=== PATIENT | female | born 1995 | race Caucasian/White ===

== ENCOUNTER 2016-08-10 13:52 | Inpatient (IN) | payer OTHER ==
--- NOTE | ~2016-08-10 | HP ---
Unit #: [id number] #: [id number] Patient: BUBBA DIEGO [id number] [place] [address] [id number] MR#: [id number] NAME: BUBBA DIEGO ROOM: [facility] Age: 21 Sex: F Admission Date: 08/10/2016 : 1995 Attending Physician: Surinder Suazo M.D. Admitting Physician: Surinder Suazo M.D. Primary Care Physician: Generic Doctor Not In System HISTORY AND PHYSICAL HISTORY OF PRESENT ILLNESS The patient is a 21-year-old female admitted to [facility] on 08/10/2016 to withdrawal from heroin and for suicidal ideations. PAST MEDICAL HISTORY 1. Drug abuse. 2. Asthma. PAST SURGICAL HISTORY Cholecystectomy SOCIAL HISTORY The patient works at [employer]. She lives with her boyfriend's mom. She smokes E-cigarettes and uses 1/2 gram of heroin every one to two days. FAMILY MEDICAL HISTORY Noncontributory. ALLERGIES No known drug allergies. CURRENT MEDICATIONS 1. Alprazolam 2. Tri-Sprintec. 3. Neurontin 4. Celexa 5. Advair REVIEW OF SYSTEMS CONSTITUTIONAL: No fever or chills. HEENT: Denies any sore throat, ear pain or runny nose. CARDIOVASCULAR: Denies chest pain, irregular heart rhythm or palpitations. CHEST: Denies shortness of breath or cough. No hemoptysis. GASTROINTESTINAL: Denies nausea, vomiting, diarrhea or chronic constipation. ENDOCRINE: Denies history of increased thirst or urination. No recent significant weight loss or gain. GENITOURINARY: Denies dysuria, frequency, or hematuria. SKIN: Denies any rashes. HEMATOLOGIC: Denies history of increased bleeding or bruising. MUSCULOSKELETAL: Denies any hot, swollen joints. No generalized muscle pain. NEUROLOGIC: Denies problems with vision or speech. No frequent, severe Unit #: [id number] #: [id number] Patient: BUBBA DIEGO headaches. No numbness, tingling or weakness in any extremities. Denies loss of bladder or bowel control. PHYSICAL EXAM GENERAL: She is awake, alert and oriented in no acute distress. VITAL SIGNS: Temperature 98.2, heart rate 84, respiration 18, blood pressure 160/100. HEIGHT: 5'3". WEIGHT: 128 pounds. SKIN: Warm and dry without rash or lesion. HEENT: Normocephalic. TMs not viewed. Oral and nasal passages clear. Conjunctivae clear. PERRLA. EOMs intact. NECK: Supple without lymphadenopathy or thyromegaly. HEART: Regular rate and rhythm without murmur. LUNGS: Clear. ABDOMEN: Soft, nontender. : Not done. EXTREMITIES: No evidence of cyanosis, clubbing or edema. Moves all without focal deficit. NEUROLOGICAL: Grossly within normal limits. Cranial Nerves: II: Visual cedeno are intact. III, IV AND : Extraocular movements are intact. Pupils are equal, round and reactive to light. V: Facial sensation is grossly normal. VII: Facial movements and expression are normal. VIII: Auditory acuity grossly intact. IX, X: Uvula is midline. Phonation is normal. XI: Patient shrugs shoulders and turns head normally. XII: Tongue protrudes in the midline. Sensory and Motor Function: Sensory and motor sensation is grossly normal. Motor: moves all extremities well. IMPRESSION 1. Psychiatric admission. 2. Drug abuse. 3. Asthma. RECOMMENDATIONS Psychiatric per psychiatrist. MEDICAL: No contraindication to participate in facility activities. MEDICAL PROGNOSIS Good. MEDICAL CONDITION Stable. Dictated by... Yun Humphreys/mirna TD: 08/12/2016 03:18 Unit #: [id number] #: [id number] Patient: BUBBA DIEGO JOB #: [id number] HISTORY AND PHYSICAL X JULI SIDDIQUI APRN X HISTORY AND PHYSICAL
--- NOTE | ~2016-08-10 | PN ---
Unit #: [id number] #: [id number] Patient: BUBBA PAULINO [id number] [facility] [address] [place] [address] [id number] I MR#: [id number] NAME: BUBBA PAULINO ROOM: [facility] Age: 21 Sex: F Admission Date: 08/10/2016 : 1995 Attending Physician: Surinder Suazo M.D. Admitting Physician: Surinder Suazo M.D. Primary Care Physician: Generic Doctor Not In System [facility] PROGRESS NOTES DATE OF SERVICE: 08/12/2016 SUBJECTIVE Ms. Bubba Paulnio is a 21-year-old white female, seen on 08/12/2016. The patient was pleasant and cooperative during interview, but still sad, dysphoric, anxious. The patient denied any withdrawal symptoms. Reports that she is sleeping good, tolerating medication fairly well. The patient denied any suicidal ideation. REVIEW OF SYSTEMS Complete review of systems unremarkable. MENTAL STATUS EXAMINATION General appearance, the patient dressed casually. Attention span and concentration, fair. Oriented in place and person. Mood and affect were sad and dysphoric. Speech, regular rate. Thought process, goal directed. Association, the patient denied any thoughts of harming self or others or any psychotic symptom but withdrawn, isolative and seclusive. Recent and remote memory, fair. Insight and judgment, fair to poor. DIAGNOSIS Mood disorder, not otherwise specified. ASSESSMENT AND PLAN Advised to continue with current medication and therapeutic protocol. We will monitor response to medication and make further adjustment of medication. Dictated by... Josh Munoz/sultana TD: 08/13/2016 07:24 JOB #: [id number] Unit #: [id number] #: [id number] Patient: BUBBA PAULINO [facility] PROGRESS NOTES X Surinder Suazo MD PROGRESS NOTE
--- NOTE | ~2016-08-10 | PN ---
Unit #: [id number] #: [id number] Patient: BUBBA PAULINO [id number] [facility] [address] [place] [address] [id number] MR#: [id number] NAME: BUBBA PAULINO ROOM: [facility] Age: 21 Sex: F Admission Date: 08/10/2016 : 1995 Attending Physician: Surinder Suazo M.D. Admitting Physician: Surinder Suazo M.D. Primary Care Physician: Generic Doctor Not In System [facility] PROGRESS NOTES DATE 08/11/2016 DISCUSSION Ms. Bubba Paulino is a 21-year-old female seen on 08/11/2016. The patient continues to be sad, depressed, flat affect, withdrawn, isolative but maintained safe behavior, no aggressive behavior. Or self-harming behavior. Tolerating medication fairly well. Complete review of systems unremarkable. MENTAL STATUS EXAMINATION General appearance, the patient dressed casually. Attention span and concentration fair. Oriented to place and person. Mood and affect sad, dysphoric, withdrawn. Speech regular rate. Thought process goal directed. The patient denied any thoughts of harming self or others but still sad depressed, withdrawn, isolative. Recent and remote memory fair. Insight and judgement fair to poor. DIAGNOSES 1. Mood disorder NOS. 2. Opioid use disorder severe. ASSESSMENT/PLAN Advise to continue with current medication and therapeutic protocol. We will monitor response to medication and make further adjustment of medication. Dictated by... Josh Munoz/mirna TD: 08/13/2016 22:12 JOB #: [id number] Unit #: [id number] #: [id number] Patient: BUBBA PAULINO PROGRESS NOTES X Surinder Suazo MD PROGRESS NOTE
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
--- NOTE | ~2016-08-10 | DS ---
Unit #: [id number] #: [id number] Patient: BUBBA DIEGO [id number] [facility] [address] [place] [address] [id number] I MR#: [id number] NAME: BUBBA DIEGO ROOM: [facility] Age: 21 Sex: F Admission Date: 08/10/2016 : 1995 Discharge Date: 08/13/2016 Attending Physician: Surinder Suazo M.D. Primary Care Physician: Generic Doctor Not In System DISCHARGE SUMMARY REASON FOR ADMISSION Suicidal ideation. DIAGNOSTIC STUDIES LABORATORY RESULTS: Unremarkable except for urine drug screen positive for benzodiazepine. HOSPITAL COURSE The patient was admitted to inpatient unit and treated with group therapy, individual therapy, medication management, and chemical dependency group. The patient responded well with the above modalities of treatment. Subsequently, the patient was discharged with a plan to follow up in outpatient program. DISCHARGE MEDICATIONS Celexa 20 mg daily for mood symptom. DISCHARGE DIAGNOSES Psychiatric: 1. Mood disorder, not otherwise specified. 2. Opioid use disorder, severe. Secondary diagnosis: Deferred. Medical diagnosis: Asthma. Stressors: Psychosocial stressors. DISCHARGE INSTRUCTIONS The patient is to follow up in outpatient clinic as per high school social science teacher. CONDITION ON DISCHARGE The patient was pleasant and cooperative. Denied any psychotic symptom or any suicidal ideation. PROGNOSIS Guarded. DIET AND ACTIVITY As tolerated. Dictated by... Surinder Suazo M.D. Unit #: [id number] #: [id number] Patient: BUBBA DIEGO SZC/modl TD: 08/13/2016 19:05 JOB #: [id number] DISCHARGE SUMMARY X Surinder Suazo MD X DISCHARGE SUMMARY
[2016-08-11 12:30] LABS: BASOPHIL% 0.2 % (0-2.5); EOSINOPHIL# 0.6 X10e3 (0-0.7); EOSINOPHIL% 9.2 % (0.0-7.0); HEMATOCRIT 39.5 % (35.0-45.0); HEMOGLOBIN 13.1 gm/dL (12.0-16.0); LYMPHOCYTE# 2.8 X10e3 (1.0-3.5); LYMPHOCYTE% 44.7 % (17.0-45.0); MEAN CELL VOLUME 88.6 FL (83-96); MEAN CORPUSCULAR HEMOGLOBIN 29.4 PG (28-34); MEAN CORPUSCULAR HGB CONC 33.2 g/dL (30-36); MEAN PLATELET VOLUME 9.6 FL (6.5-11.5); MONOCYTE# 0.5 X10e3 (0-1.0); MONOCYTE% 8.2 % (3.0-12.0); NEUTROPHIL# 2.4 X10e3 (1.5-7.1); NEUTROPHIL% 37.7 % (40-75); PLATELET COUNT 197 X10e3 (140-420); RED BLOOD COUNT 4.46 X10e (3.90-5.30); RED CELL DISTRIBUTION WIDTH 12.6 % (11.0-15.5); WHITE BLOOD COUNT 6.3 X10e3 (4.0-10.5)
[2016-08-11 12:33] LABS: DIFF IND NO
[2016-08-11 13:06] LABS: ALBUMIN SERUM 3.7 g/dL (3.5-5.0); ALKALINE PHOSPHATASE 50 U/L (32-92); ALT (SGPT) 27 U/L (10-40); AST (SGOT) 28 U/L (10-42); BILIRUBIN,TOTAL 0.5 mg/dL (0.2-2.0); BLOOD UREA NITROGEN 10 mg/dL (9-23); BUN/CREATININE RATIO 16.66; CALCIUM SERUM 8.8 mg/dL (8.4-10.2); CARBON DIOXIDE 29 mmol/L (22-31); CHLORIDE 101 mmol/L (100-111); CREATININE SERUM 0.6 mg/dL (0.6-1.4); GLOM FILT RATE Estimated ABOVE60 mL/min (>60); GLUCOSE FASTING 81 mg/dL (70-110); POTASSIUM 4.2 mmol/L (3.5-5.1); PROTEIN TOTAL SERUM 6.7 g/dL (6.0-8.3); SODIUM 136 mmol/L (135-145)
[2016-08-11 13:09] LABS: THYROID STIMULATING HORMONE 0.89 uIU/ml (0.34-5.60)
[2016-08-11 13:16] LABS: FREE THYROXIN (T4) 0.71 ng/dL (0.58-1.64)
[2016-08-12 16:42] LABS: URINE APPEARANCE CLEAR; URINE BILIRUBIN NEG (NEG); URINE BLOOD NEG (NEG); URINE COLOR YELLOW; URINE GLUCOSE NEG (NEG); URINE KETONE NEG (NEG); URINE LEUKOCYTE ESTERASE 1+ (NEG); URINE NITRATE NEG (NEG); URINE PH 7.5 (5-8); URINE PROTEIN NEG (NEG); URINE SPECIFIC GRAVITY 1.017 (1.003-1.035); URINE UROBILINOGEN 0.2 MG/DL (NEG)
[2016-08-12 16:43] LABS: AMPHETAMINE NEG (NEG); BARBITURATES NEG (NEG); BENZODIAZEPINES POS (NEG); COCAINE NEG (NEG); MARIJUANA NEG (NEG); OPIATES NEG (NEG); TRICYCLIC ANTIDEPRESSANTS NEG (NEG); U METHADONE NEG (NEG)
[2016-08-12 16:46] LABS: U HYALINE CASTS AUWI 0-2 /[LPF]; URINE BACTERIA AUWI 2+ (NEGATIVE); URINE SQUAMOUS EPITHELIAL CELL MOD /[HPF]
[2016-08-13 23:58] LABS: HA AB IGM (HEPPAN) Nonreactive (Nonreactive); HB CORE AB IGM (HEPPAN) Nonreactive (Nonreactive); HB S AG (HEPPAN) Nonreactive (Nonreactive); HEP C AB (HEPPAN) Nonreactive (Nonreactive); HEP C AB SIGNAL TO CUTOFF 0.02 ratio (<1.00)
== END 2016-08-13 10:13 | DRG 897 ==
LOC: P1E 13:52
PROVIDERS: Psychiatry & Neurology Psychiatry
PROC: HZ2ZZZZ Detoxification Services for Substance Abuse Treatment (ICD-10-PCS; principal; 2016-08-10)
DX: F11.20 Opioid dependence, uncomplicated (principal); F39 Unspecified mood [affective] disorder; F32.9 Major depressive disorder, single episode, unspecified; J45.909 Unspecified asthma, uncomplicated; F17.200 Nicotine dependence, unspecified, uncomplicated
CPT/HCPCS: 80053; 80074; 80307; 81003; 84439; 84443; 84703; 85025; 86592; 87806